=== PATIENT | female | born 1995 | race Caucasian/White ===

== ENCOUNTER → 2017-03-22 | Outpatient (CLI) | payer OTHER ==
--- NOTE | 2017-03-23 00:48 | REP ---
Clinical: Pain. Technique: AP and frog lateral views of the right hip. Findings: Osseous structures, joint space, and surrounding soft tissues are normal. No evidence for acute or healed injury. No significant degenerative changes. Impression: Normal right hip radiographs. Signed by Brian Yost MD 03/23/2017 12:40 A
== END ==
LOC: M RAD 17:23
PROVIDERS: ATTEND Nurse Practitioner Family
DX: M25.551 Pain in right hip (principal)

== ENCOUNTER 2019-01-08 08:43 | Emergency (ER) | payer OTHER ==
[~2019-01-08] VITALS: Ht 165.1 cm; Wt 59.1 kg
[2019-01-08] MEDS ORDERED: IPRATROPIUM 0.5MG/ALBUTEROL 2.5MG INH SOL UD 3ML (DUONEB)(J7620) NEB ONE (09:15)
[2019-01-08 09:55] LABS: INFLUENZA A AMPLIFICATION NEGATIVE (NEGATIVE); INFLUENZA B AMPLIFICATION NEGATIVE (NEGATIVE)
[2019-01-08 10:02] VITALS: BP 125/70
[2019-01-08] MEDS ORDERED: PROAAER10 INH (10:06)
--- NOTE | 2019-01-08 13:24 | REP ---
CHEST, TWO VIEWS: There is no evidence of acute infiltrate. No pleural effusion is seen. The heart is normal in size. The mediastinal silhouette is unremarkable. The visualized osseous structures are intact. IMPRESSION: No acute pulmonary disease. Electronically Signed by Aries Puentes MD 01/08/2019 11:38 P
== END 2019-01-08 10:15 | disposition home or self-care (01) ==
LOC: M ED 08:43
DX: R05 Cough (principal); R06.2 Wheezing; R68.83 Chills (without fever); M79.10 Myalgia, unspecified site; B97.4 Respiratory syncytial virus as the cause of diseases classified elsewhere; F17.200 Nicotine dependence, unspecified, uncomplicated; Z88.0 Allergy status to penicillin

== ENCOUNTER 2019-05-18 18:35 | Emergency (ER) | payer OTHER ==
[~2019-05-18] VITALS: Ht 165.1 cm; Wt 58.9 kg
[~2019-05-18 18:35] MED LIST: PROAAER10 INH
[2019-05-18 18:38] VITALS: BP 117/71
== END 2019-05-18 18:48 | disposition left against medical advice (07) ==
LOC: M ED 18:35
DX: Z53.29 Procedure and treatment not carried out because of patient's decision for other reasons (principal)

== ENCOUNTER → 2020-08-25 | Outpatient (REF) | payer MEDICAID, OTHER | LOC: M LAB REF 19:17 | PROVIDERS: ATTEND Nurse Practitioner Family | DX: Z12.4 Encounter for screening for malignant neoplasm of cervix (principal); N76.0 Acute vaginitis ==

== ENCOUNTER → 2021-03-23 | Outpatient (REF) | payer OTHER ==
[2021-03-23 17:27] LABS: HEMATOCRIT 37.8 % (36.0-47.0); HEMOGLOBIN 12.5 g/dl (12.0-15.5); MEAN CORPUSCULAR HEMOGLOBIN 30.9 pg (27.0-33.0); MEAN CORPUSCULAR HGB CONC 33.1 g/dl (32.0-36.5); MEAN CORPUSCULAR VOLUME 93.6 fl (80.0-96.0); PLATELET COUNT, AUTOMATED 298 10^3/uL (150-450); RED BLOOD COUNT 4.04 10^6/uL (4.00-5.40); WHITE BLOOD COUNT 10.6 10^3/uL (4.0-10.0)
[2021-03-23 21:53] LABS: HCG, SERUM QUANTITATIVE 10070 MIU/ML
[2021-03-24 10:41] LABS: HEPATITIS C VIRUS ABY INDEX < 0.0 INDEX (<0.8); HIV 1&2 SCREEN CENTAUR NEGATIVE (NEGATIVE)
== END ==
LOC: M LAB REF 16:11
PROVIDERS: ATTEND Advanced Practice Midwife
DX: Z32.01 Encounter for pregnancy test, result positive (principal)

== ENCOUNTER 2021-07-14 14:43 | Outpatient (CLI) | payer OTHER ==
[~2021-07-14] VITALS: Ht 165.1 cm; Wt 81.6 kg
[2021-07-14 15:01] VITALS: BP 130/62
--- NOTE | 2021-07-14 16:19 | IPNPDOC ---
Text Note Date of Service The patient was seen on 07/14/21. NOTE Progress note S: 23 yo G1 at 21 weeks (SANCHEZ=[birth year]) presents to triage with sharp, intermittent lower pelvic pain for 1 day. Pain is worse with turning or bending. She has some low back pain. Pt of Dr. Glass. O: AVSS NAD Abd: NT, soft, gravid SVE: cx L/C/P FHT: + toco: none A/P 23 yo G1 at 21 weeks gestation with ligament pain discharge home fu Dr. Glass as scheduled GLORIA COOK MD Jul 14, 2021 16:19
== END 2021-07-14 16:25 | disposition home or self-care (01) ==
LOC: M LDO 14:43
PROVIDERS: ATTEND Specialist
DX: O26.892 Other specified pregnancy related conditions, second trimester (principal); R10.2 Pelvic and perineal pain; Z3A.21 21 weeks gestation of pregnancy

== ENCOUNTER → 2024-10-02 | Outpatient (CLI) | payer OTHER ==
[~2024-10-02] MED LIST changes: +ACET-683 PO; +ACET-897 PO; +CLEO300C2 PO; +COLA100C5 PO; +IBUP-1022 PO; +LEVO1TAB39 PO; +M-NA1TAB; +METR-265 PO; +NITR100C3 PO; +OXYC-517 PO; +OXYC1TAB23 PO; +PERCOCET PO; +SKYL13.5 IU
== END ==
LOC: M RAD 14:22 → MERGE 15:15
PROVIDERS: ATTEND Obstetrics & Gynecology
DX: Z34.82 Encounter for supervision of other normal pregnancy, second trimester (principal); Z3A.19 19 weeks gestation of pregnancy

== ENCOUNTER 2024-10-19 09:33 | Outpatient (CLI) | payer OTHER ==
[~2024-10-19] VITALS: Ht 162.6 cm; Wt 88.1 kg
[2024-10-19 09:59] VITALS: BP 109/54
== END 2024-10-19 13:20 | disposition home or self-care (01) ==
LOC: M LDO 09:33
PROVIDERS: ATTEND Advanced Practice Midwife
DX: O26.892 Other specified pregnancy related conditions, second trimester (principal); O44.42 Low lying placenta NOS or without hemorrhage, second trimester; O34.211 Maternal care for low transverse scar from previous cesarean delivery; M54.40 Lumbago with sciatica, unspecified side; Z3A.23 23 weeks gestation of pregnancy
CPT/HCPCS: 59025; 81001; G0463

== ENCOUNTER → 2024-11-07 | Outpatient (CLI) | payer OTHER ==
[2024-11-07 07:30] LABS: HEMATOCRIT 35.2 % (36.0-47.0); HEMOGLOBIN 11.4 g/dl (12.0-15.5); MEAN CORPUSCULAR HGB CONC 32.4 g/dl (32.0-36.5); MEAN CORPUSCULAR VOLUME 95.7 fl (80.0-96.0); PLATELET COUNT, AUTOMATED 276 10^3/uL (150-450); RED BLOOD COUNT 3.68 10^6/uL (4.00-5.40)
[2024-11-08 08:58] LABS: WHITE BLOOD COUNT 12.7 10^3/uL (4.0-10.0)
== END ==
LOC: M RAD 06:50
PROVIDERS: ATTEND Obstetrics & Gynecology
DX: Z34.82 Encounter for supervision of other normal pregnancy, second trimester (principal)

== ENCOUNTER → 2024-11-08 | Outpatient (REF) | payer OTHER | LOC: M LAB REF 13:36 | PROVIDERS: ATTEND Advanced Practice Midwife | DX: R30.0 Dysuria (principal) ==

== ENCOUNTER → 2024-11-22 | Outpatient (REF) | payer OTHER | LOC: M LAB REF 12:10 | PROVIDERS: ATTEND Obstetrics & Gynecology | DX: R30.0 Dysuria (principal) ==

== ENCOUNTER 2024-12-19 07:32 | Outpatient (CLI) | payer OTHER ==
[~2024-12-19] VITALS: Ht 162.6 cm; Wt 92.3 kg
[2024-12-19] MEDS ORDERED: HOME MED LIST COMPLETE! XX SCH (08:05)
[2024-12-19 08:07] VITALS: BP 126/62
[2024-12-19 09:02] LABS: APPEARANCE, URINE HAZY (CLEAR); BACTERIA, URINE AUTO 1+ (NEGATIVE); BILIRUBIN, URINE AUTO NEGATIVE (NEGATIVE); BLOOD, URINE BLOOD NEGATIVE (NEGATIVE); COLOR, URINE YELLOW (YELLOW); GLUCOSE, URINE (UA) AUTO NEGATIVE (NEGATIVE); KETONE, URINE AUTO TRACE mg/dL (NEGATIVE); LEUKOCYTE ESTERASE, URINE AUTO NEGATIVE (NEGATIVE); MUCUS, URINE SMALL (NEGATIVE); NITRITE, URINE AUTO NEGATIVE (NEGATIVE); PROTEIN, URINE AUTO NEGATIVE (NEGATIVE); RBC, URINE AUTO 1 /HPF (0-3); SPECIFIC GRAVITY URINE AUTO 1.017 (1.002-1.035); SQUAMOUS EPITHELIAL CELL UR AU 4 /HPF (0-6); UROBILINOGEN, URINE AUTO 0.2 mg/dL (0.0-2.0); WBC, URINE AUTO 1 /HPF (0-3)
== END 2024-12-19 10:00 | disposition home or self-care (01) ==
LOC: M LDO 07:32
PROVIDERS: ATTEND Advanced Practice Midwife
DX: O26.893 Other specified pregnancy related conditions, third trimester (principal); O34.219 Maternal care for unspecified type scar from previous cesarean delivery; R25.2 Cramp and spasm; M54.50 Low back pain, unspecified; Z3A.32 32 weeks gestation of pregnancy
CPT/HCPCS: 59025; 81001; 87086; G0463

== ENCOUNTER → 2025-01-08 | Outpatient (REF) | payer OTHER | LOC: M LAB REF 16:10 | PROVIDERS: ATTEND Obstetrics & Gynecology | DX: Z34.83 Encounter for supervision of other normal pregnancy, third trimester (principal) ==

== ENCOUNTER 2025-02-05 05:23 | Inpatient (IN) | payer OTHER ==
[2025-02-05] VITALS (7 sets, daily range): BP systolic 100–113; BP diastolic 54–74; TEMP 96.7; O2SAT 96–100
[~2025-02-05] VITALS: Ht 162.6 cm; Wt 94.1 kg
[2025-02-05] MEDS: LACTATED RINGER'S 1000 ML IV STA (05:49)
[2025-02-05] MEDS: ceFAZolin SODIUM 2 GM in DEXTROSE 5% (D5W) ADV/MINI-BAG 50 ML IV ONE (05:50)
[2025-02-05] MEDS ORDERED: LR 1,000 ML IV SCH (05:50)
[2025-02-05 06:41] LABS: HEMOGLOBIN 10.8 g/dl (12.0-15.5); MEAN CORPUSCULAR HEMOGLOBIN 31.5 pg (27.0-33.0); MEAN CORPUSCULAR HGB CONC 33.8 g/dl (32.0-36.5); MEAN CORPUSCULAR VOLUME 93.3 fl (80.0-96.0); PLATELET COUNT, AUTOMATED 248 10^3/uL (150-450); RED BLOOD COUNT 3.43 10^6/uL (4.00-5.40); WHITE BLOOD COUNT 12.8 10^3/uL (4.0-10.0)
[2025-02-05] MEDS: BICITRA 30ML SOLN UDC PO ONE (07:16)
[2025-02-05 07:36] LABS: HEPATITIS C VIRUS ABY INDEX 0.04 INDEX (<0.8)
[2025-02-05] MEDS ORDERED: MORPHINE PRES-FREE INJ 10 MG/10 ML VIAL As Ordered ONE (07:57)
[2025-02-05] MEDS ORDERED: OXYTOCIN INJ 10UNITS/ML 1ML VIAL As Ordered ONE (07:57)
[2025-02-05] MEDS ORDERED: fentaNYL 100 MCG/2 ML INJECTION As Ordered ONE (07:57)
[2025-02-05] MEDS ORDERED: ONDANSETRON 4MG 2ML VIAL As Ordered ONE (07:59)
[2025-02-05] MEDS ORDERED: GLYCOPYRROLATE INJ 0.2 MG/ML 2 ML VIAL As Ordered ONE (08:02)
[2025-02-05] MEDS ORDERED: PHENYLephrine 500MCG 5ML (100MCG/ML) SYRINGE As Ordered ONE (08:15)
[2025-02-05] MEDS ORDERED: KETOROLAC 60MG 2ML VIAL As Ordered ONE (08:20)
[2025-02-05 08:25] LABS: CORD GAS ABE A -5.4; CORD GAS HCO3 A 23.3 MMOL/L; CORD GAS O2 SAT A 48.9 %; CORD GAS PCO2 A 57.4 mmHg; CORD GAS PH A 7.226 UNITS; CORD GAS PO2 A 21.7 mmHg; CORD GAS SBC A 18.9 MMOL/L
[2025-02-05 08:27] LABS: CORD GAS ABE V -2.8; CORD GAS HCO3 V 22.2 MMOL/L; CORD GAS O2 SAT V 76.3 %; CORD GAS PCO2 V 39.6 mmHg; CORD GAS PH V 7.367 UNITS; CORD GAS PO2 V 28.9 mmHg; CORD GAS SBC V 21.6 MMOL/L; CORD GAS TCO2 V 23.4 MMOL/L
[2025-02-05] MEDS ORDERED: SIMETHICONE 80MG CHEW TAB PO PRN (08:45)
[2025-02-05] MEDS ORDERED: RHOGAM 300MCG (1500IU) INJ IM SCH (08:45)
[2025-02-05] MEDS ORDERED: DOCUSATE SODIUM 100MG CAPSULE PO PRN (08:45)
[2025-02-05] MEDS: OXYTOCIN DRIP 30 UNITS in IV 1 EA IV SCH (08:45)
[2025-02-05] MEDS: PRENATAL VITAMINS CHEWABLE TABLET PO SCH (09:00)
[2025-02-05] MEDS: DOCUSATE SODIUM 100MG CAPSULE PO SCH (09:00)
[2025-02-05] MEDS ORDERED: **NOTE PATIENT COMMENT** MISC XX SCH (09:35)
[2025-02-05] MEDS ORDERED: NALOXONE INJ 0.4MG/1ML VIAL IV PRN ×2 (09:35)
[2025-02-05] MEDS ORDERED: diphenhydrAMINE 50MG/ML VIAL IV PRN (09:35)
[2025-02-05] MEDS: fentaNYL 100 MCG/2 ML INJECTION IV PRN (09:46)
[2025-02-05] MEDS: ONDANSETRON 4MG 2ML VIAL IV PRN (09:58)
[2025-02-05 12:16] LABS: HIV 1&2 SCREEN NEGATIVE (NEGATIVE)
[2025-02-05] MEDS: METOCLOPRAMIDE INJ 10MG/2ML VIAL IV PRN (13:40)
[2025-02-05] MEDS: SLF 3 ML SYR IV SCH (13:49)
[2025-02-05] MEDS: KETOROLAC 30 MG/ML 1ML VIAL IV SCH (13:58)
[2025-02-05] MEDS ORDERED: ONDANSETRON 4MG 2ML VIAL IV ONE (14:05)
[2025-02-05] MEDS: LR 500 ML IV ONE (14:09)
[2025-02-05] MEDS ORDERED: ONDANSETRON 4MG 2ML VIAL IV PRN (14:15)
[2025-02-06 02:00] VITALS: BP 119/58; O2SAT 98
[2025-02-06 06:00] VITALS: BP 121/58; O2SAT 97
[2025-02-06 06:36] LABS: HEMATOCRIT 25.6 % (36.0-47.0); MEAN CORPUSCULAR HEMOGLOBIN 30.8 pg (27.0-33.0); MEAN CORPUSCULAR HGB CONC 32.8 g/dl (32.0-36.5); MEAN CORPUSCULAR VOLUME 93.8 fl (80.0-96.0); PLATELET COUNT, AUTOMATED 189 10^3/uL (150-450); RED BLOOD COUNT 2.73 10^6/uL (4.00-5.40)
[2025-02-06 06:40] LABS: HEMOGLOBIN 8.4 g/dl (12.0-15.5)
[2025-02-06] MEDS: IBUPROFEN 800 MG TAB PO SCH (08:08)
[2025-02-06 10:00] VITALS: BP 110/56; O2SAT 98
[2025-02-06] MEDS ORDERED: IBUPROFEN 800 MG TAB PO SCH (10:00)
[2025-02-06] MEDS: ACETAMINOPHEN 500 MG TAB PO ONE (13:23)
[2025-02-06 14:00] VITALS: BP 126/58; O2SAT 97
[2025-02-06] MEDS: oxyCODONE 5MG TAB PO ONE (14:39)
[2025-02-06 18:00] VITALS: BP 124/65; O2SAT 99
[2025-02-06] MEDS: PERCOCET 5MG/325MG TAB PO PRN (19:36)
[2025-02-06 22:00] VITALS: BP 136/63; O2SAT 97
[2025-02-07 02:00] VITALS: BP 121/64; O2SAT 98
[2025-02-07 06:00] VITALS: BP 122/59; O2SAT 98
[2025-02-07] MEDS: MEASLES,MUMPS,RUBELLA VACCINE INJ (MMR-II) SC.IMMUN ONE (09:00)
[2025-02-07 10:00] VITALS: BP 131/74; O2SAT 98
[2025-02-07] MEDS ORDERED: IBUP80TA PO (13:56)
[2025-02-07] MEDS ORDERED: COLA100C5 PO (13:56)
== END 2025-02-07 14:31 | disposition home or self-care (01) | DRG 540 ==
LOC: M LDI 05:23 → M OBS 10:13
PROVIDERS: ADMIT Obstetrics & Gynecology; ATTEND Obstetrics & Gynecology
PROC: 10D00Z1 Extraction of Products of Conception, Low, Open Approach (ICD-10-PCS; principal; 2025-02-05 07:30)
DX: O34.211 Maternal care for low transverse scar from previous cesarean delivery (principal); Z88.0 Allergy status to penicillin; Z37.0 Single live birth; Z3A.39 39 weeks gestation of pregnancy; Z91.018 Allergy to other foods; Z91.040 Latex allergy status; Z87.891 Personal history of nicotine dependence

== ENCOUNTER 2025-02-09 20:29 | Observation (INO) | payer OTHER ==
[~2025-02-09] VITALS: Ht 162.6 cm; Wt 92.5 kg
[~2025-02-09 20:29] MED LIST changes: +IBUP80TA PO
[2025-02-09] MEDS: ONDANSETRON 4MG 2ML VIAL IV ONE (21:55)
[2025-02-09] MEDS: ACETAMINOPHEN *IV* 1,000 MG in IV 1 EA IV ONE (21:59)
[2025-02-09 22:02] LABS: BASO % 0.4 % (0.0-1.0); EOS # 0.3 10^3/uL (0.0-0.5); EOS % 2.7 % (0.0-3.0); HEMATOCRIT 30.3 % (36.0-47.0); HEMOGLOBIN 9.9 g/dl (12.0-15.5); LYMPH # 2.3 10^3/uL (1.5-5.0); LYMPH % 24.5 % (24.0-44.0); MEAN CORPUSCULAR HEMOGLOBIN 30.8 pg (27.0-33.0); MEAN CORPUSCULAR HGB CONC 32.7 g/dl (32.0-36.5); MEAN CORPUSCULAR VOLUME 94.4 fl (80.0-96.0); MONO # 0.7 10^3/uL (0.0-0.8); MONO % 7.2 % (2.0-8.0); NEUTROPHILS % 64.9 % (36.0-66.0); PLATELET COUNT, AUTOMATED 249 10^3/uL (150-450); RED BLOOD COUNT 3.21 10^6/uL (4.00-5.40); WHITE BLOOD COUNT 9.2 10^3/uL (4.0-10.0)
[2025-02-09 22:17] LABS: INR 0.99; PARTIAL THROMBOPLASTIN TIME 26.6 SECONDS (24.8-34.2); PROTHROMBIN TIME 13.4 SECONDS (12.5-14.5)
[2025-02-09 22:26] LABS: BLOOD UREA NITROGEN 16 MG/DL (9-23); CALCIUM LEVEL 8.4 MG/DL (8.5-10.1); CARBON DIOXIDE LEVEL 24 MMOL/L (20-31); CHLORIDE LEVEL 109 MMOL/L (98-107); CREATININE FOR GFR 0.89 MG/DL (0.55-1.30); GLOMERULAR FILTRATION RATE > 60.0 (>60); GLUCOSE, FASTING 80 MG/DL (60-100); POTASSIUM SERUM 4.2 MMOL/L (3.5-5.1); SODIUM LEVEL 142 MMOL/L (136-145)
[2025-02-09] MEDS ORDERED: ISOVUE-370 76% 100ML VIAL As Ordered ONE (22:32)
[2025-02-09 22:36] VITALS: BP 162/77
[2025-02-09] MEDS: hydrALAZINE 20MG/ML 1ML VIAL IV STA (22:36)
[2025-02-09 22:46] LABS: ALBUMIN 2.6 G/DL (3.2-5.2); ALKALINE PHOSPHATASE 128 U/L (35-104); ALT/SGPT 40 U/L (7.0-40); AST/SGOT 35 U/L (<34); BILIRUBIN,DIRECT 0.1 MG/DL (<0.4); BILIRUBIN,TOTAL 0.5 MG/DL (0.3-1.2); MAGNESIUM LEVEL 1.7 MG/DL (1.8-2.4); PHOSPHORUS LEVEL 4.3 MG/DL (2.5-4.9); TOTAL PROTEIN 5.8 G/DL (5.7-8.2)
[2025-02-09] MEDS: MAG SULF 1GM/100ML (MAG RUN) 1 GM in IV 1 EA IV SCH (22:46)
[2025-02-09 22:55] LABS: URIC ACID 6.4 MG/DL (3.1-7.8)
[2025-02-09 22:56] LABS: CK-MB VALUE MASS 1.2 NG/ML (<3.6)
[2025-02-09 22:58] LABS: CPK CREATINE PHOSPHOKINASE 293 U/L (34-145)
[2025-02-09] MEDS ORDERED: DOCU100C16 PO (23:55)
[2025-02-09] MEDS ORDERED: IBUP-1764 PO (23:55)
[2025-02-09] MEDS ORDERED: HOME MED LIST COMPLETE! XX SCH (23:55)
[2025-02-10] VITALS (15 sets, daily range): BP systolic 110–176; BP diastolic 59–84; TEMP 96.4–98.7; O2SAT 96–100
[2025-02-10] MEDS ORDERED: FIORICET TAB PO SCH
[2025-02-10 00:12] LABS: APPEARANCE, URINE HAZY (CLEAR); BACTERIA, URINE AUTO NEGATIVE (NEGATIVE); BILIRUBIN, URINE AUTO NEGATIVE (NEGATIVE); BLOOD, URINE BLOOD 3+ (NEGATIVE); COLOR, URINE YELLOW (YELLOW); GLUCOSE, URINE (UA) AUTO NEGATIVE (NEGATIVE); KETONE, URINE AUTO NEGATIVE (NEGATIVE); LEUKOCYTE ESTERASE, URINE AUTO TRACE (NEGATIVE); MUCUS, URINE SMALL (NEGATIVE); NITRITE, URINE AUTO NEGATIVE (NEGATIVE); PROTEIN, URINE AUTO 2+ mg/dL (NEGATIVE); RBC, URINE AUTO TNTC /HPF (0-3); SQUAMOUS EPITHELIAL CELL UR AU 7 /HPF (0-6); UROBILINOGEN, URINE AUTO 0.2 mg/dL (0.0-2.0); WBC, URINE AUTO 5 /HPF (0-3)
[2025-02-10] MEDS ORDERED: IBUPROFEN 600MG TAB PO PRN ×2 (00:15→09:00)
[2025-02-10] MEDS: MAG Sulf (OBGYN) 20GM/500ML 20,000 MG in IV 1 EA IV SCH (01:16)
[2025-02-10] MEDS: ACETAMINOPHEN 325 MG TAB PO PRN (01:25)
[2025-02-10] MEDS: KETOROLAC 30 MG/ML 1ML VIAL IV ONE (02:57)
[2025-02-10 05:11] LABS: HEMATOCRIT 29.3 % (36.0-47.0); HEMOGLOBIN 9.6 g/dl (12.0-15.5); MEAN CORPUSCULAR HEMOGLOBIN 30.9 pg (27.0-33.0); MEAN CORPUSCULAR HGB CONC 32.8 g/dl (32.0-36.5); MEAN CORPUSCULAR VOLUME 94.2 fl (80.0-96.0); PLATELET COUNT, AUTOMATED 225 10^3/uL (150-450); RED BLOOD COUNT 3.11 10^6/uL (4.00-5.40); WHITE BLOOD COUNT 8.4 10^3/uL (4.0-10.0)
[2025-02-10 05:41] LABS: ALBUMIN 2.5 G/DL (3.2-5.2); ALKALINE PHOSPHATASE 120 U/L (35-104); ALT/SGPT 37 U/L (7.0-40); AST/SGOT 28 U/L (<34); BILIRUBIN,TOTAL 0.5 MG/DL (0.3-1.2); BLOOD UREA NITROGEN 14 MG/DL (9-23); CARBON DIOXIDE LEVEL 23 MMOL/L (20-31); CHLORIDE LEVEL 108 MMOL/L (98-107); CREATININE FOR GFR 0.75 MG/DL (0.55-1.30); GLOMERULAR FILTRATION RATE > 60.0 (>60); GLUCOSE, FASTING 86 MG/DL (60-100); POTASSIUM SERUM 3.8 MMOL/L (3.5-5.1); SODIUM LEVEL 141 MMOL/L (136-145); TOTAL PROTEIN 5.6 G/DL (5.7-8.2)
[2025-02-10] MEDS: DOCUSATE SODIUM 100MG CAPSULE PO SCH (09:00)
[2025-02-10] MEDS: NIFEdipine 10 MG CAP PO SCH (14:15)
[2025-02-10 14:59] LABS: TOTAL PROTEIN,RANDOM URINE 96.2 MG/DL (0.0-14.0)
[2025-02-10 15:04] LABS: CREATININE,RANDOM URINE 100.2 MG/DL
[2025-02-10] MEDS: FIORICET TAB PO ONE (15:21)
[2025-02-10] MEDS ORDERED: ESGI1TAB PO (17:12)
[2025-02-11] MEDS ORDERED: BUTA-198 PO (15:45)
== END 2025-02-10 18:08 | disposition home or self-care (01) ==
LOC: M ED 20:29 → M ED INP 20:30 → M ICU 02-10 01:04 → M OBS 02-10 12:51
PROVIDERS: ADMIT Specialist; ATTEND Specialist
DX: O14.95 Unspecified pre-eclampsia, complicating the puerperium (principal); Z88.0 Allergy status to penicillin; Z91.040 Latex allergy status; Z91.018 Allergy to other foods

== ENCOUNTER 2025-02-11 11:48 | Inpatient (IN) | payer OTHER ==
[~2025-02-11] VITALS: Ht 162.6 cm; Wt 85.8 kg
[~2025-02-11 11:48] MED LIST changes: +DOCU100C16 PO; +ESGI1TAB PO; +IBUP-1764 PO
[2025-02-11 12:39] LABS: BASO # 0.1 10^3/uL (0.0-0.2); BASO % 0.8 % (0.0-1.0); EOS # 0.2 10^3/uL (0.0-0.5); EOS % 2.4 % (0.0-3.0); HEMATOCRIT 32.3 % (36.0-47.0); HEMOGLOBIN 10.6 g/dl (12.0-15.5); LYMPH # 2.1 10^3/uL (1.5-5.0); LYMPH % 27.9 % (24.0-44.0); MEAN CORPUSCULAR HEMOGLOBIN 31.1 pg (27.0-33.0); MEAN CORPUSCULAR HGB CONC 32.8 g/dl (32.0-36.5); MEAN CORPUSCULAR VOLUME 94.7 fl (80.0-96.0); MONO # 0.4 10^3/uL (0.0-0.8); MONO % 5.3 % (2.0-8.0); NEUTROPHILS # 4.6 10^3/uL (1.5-8.5); NEUTROPHILS % 63.2 % (36.0-66.0); PLATELET COUNT, AUTOMATED 268 10^3/uL (150-450); RED BLOOD COUNT 3.41 10^6/uL (4.00-5.40); WHITE BLOOD COUNT 7.4 10^3/uL (4.0-10.0)
[2025-02-11 12:51] LABS: INR 0.99; PARTIAL THROMBOPLASTIN TIME 25.8 SECONDS (24.8-34.2); PROTHROMBIN TIME 13.4 SECONDS (12.5-14.5)
[2025-02-11 13:27] LABS: CK-MB VALUE MASS 1.3 NG/ML (<3.6)
[2025-02-11 13:32] LABS: ALBUMIN 2.9 G/DL (3.2-5.2); ALKALINE PHOSPHATASE 124 U/L (35-104); ALT/SGPT 39 U/L (7.0-40); AST/SGOT 28 U/L (<34); BILIRUBIN,DIRECT < 0.1 MG/DL (<0.4); BILIRUBIN,TOTAL 0.4 MG/DL (0.3-1.2); BLOOD UREA NITROGEN 10 MG/DL (9-23); CALCIUM LEVEL 8.4 MG/DL (8.5-10.1); CARBON DIOXIDE LEVEL 23 MMOL/L (20-31); CHLORIDE LEVEL 109 MMOL/L (98-107); CPK CREATINE PHOSPHOKINASE 227 U/L (34-145); CREATININE FOR GFR 0.79 MG/DL (0.55-1.30); GLOMERULAR FILTRATION RATE > 60.0 (>60); GLUCOSE, FASTING 77 MG/DL (60-100); MB/CK RELATIVE INDEX 0.57 (< OR =4); POTASSIUM SERUM 4.5 MMOL/L (3.5-5.1); SODIUM LEVEL 143 MMOL/L (136-145); TOTAL PROTEIN 6.4 G/DL (5.7-8.2)
[2025-02-11] MEDS: hydrALAZINE 20MG/ML 1ML VIAL IV ONE (14:15)
[2025-02-11 14:27] LABS: CK-MB VALUE MASS 1.3 NG/ML (<3.6)
[2025-02-11 14:28] LABS: MB/CK RELATIVE INDEX 0.58 (< OR =4)
[2025-02-11] MEDS: hydrALAZINE 20MG/ML 1ML VIAL IV STA (15:12)
[2025-02-11] MEDS ORDERED: HOME MED LIST COMPLETE! XX SCH (15:45)
[2025-02-11] MEDS ORDERED: BUTA-198 PO (15:45)
[2025-02-11] MEDS ORDERED: hydrALAZINE 20MG/ML 1ML VIAL IV PRN (15:50)
[2025-02-11 15:51] LABS: TOTAL PROTEIN,RANDOM URINE 28.1 MG/DL (0.0-14.0)
[2025-02-11 15:56] LABS: CREATININE,RANDOM URINE 29.4 MG/DL
[2025-02-11] MEDS: **hydrALAZINE HCL** 25 MG TAB PO ONE (17:32)
[2025-02-11] MEDS: METOCLOPRAMIDE INJ 10MG/2ML VIAL IV PRN (17:32)
[2025-02-11] MEDS: amLODIPine 5 MG TAB PO ONE (17:32)
[2025-02-11] MEDS: ACETAMINOPHEN 325 MG TAB PO PRN (19:00)
[2025-02-11] MEDS: **hydrALAZINE HCL** 25 MG TAB PO SCH (20:50)
[2025-02-11] MEDS: amLODIPine 5 MG TAB PO SCH (20:51)
[2025-02-11] MEDS ORDERED: amLODIPine 5 MG TAB PO SCH (21:00)
[2025-02-12] VITALS (8 sets, daily range): BP systolic 124–143; BP diastolic 66–88; TEMP 97.3–99.4; O2SAT 96–98
[2025-02-12 06:12] LABS: BASO # 0.1 10^3/uL (0.0-0.2); BASO % 0.6 % (0.0-1.0); EOS # 0.3 10^3/uL (0.0-0.5); EOS % 3.2 % (0.0-3.0); HEMOGLOBIN 11.2 g/dl (12.0-15.5); LYMPH # 3.3 10^3/uL (1.5-5.0); LYMPH % 37.3 % (24.0-44.0); MEAN CORPUSCULAR HGB CONC 32.9 g/dl (32.0-36.5); MEAN CORPUSCULAR VOLUME 94.2 fl (80.0-96.0); MONO # 0.9 10^3/uL (0.0-0.8); MONO % 9.6 % (2.0-8.0); NEUTROPHILS # 4.3 10^3/uL (1.5-8.5); NEUTROPHILS % 48.7 % (36.0-66.0); PLATELET COUNT, AUTOMATED 278 10^3/uL (150-450); RED BLOOD COUNT 3.61 10^6/uL (4.00-5.40); WHITE BLOOD COUNT 8.8 10^3/uL (4.0-10.0)
[2025-02-12 06:43] LABS: ALBUMIN 2.7 G/DL (3.2-5.2); ALKALINE PHOSPHATASE 118 U/L (35-104); ALT/SGPT 31 U/L (7.0-40); AST/SGOT 15 U/L (<34); BILIRUBIN,TOTAL 0.5 MG/DL (0.3-1.2); BLOOD UREA NITROGEN 11 MG/DL (9-23); CALCIUM LEVEL 8.5 MG/DL (8.5-10.1); CARBON DIOXIDE LEVEL 23 MMOL/L (20-31); CHLORIDE LEVEL 111 MMOL/L (98-107); CREATININE FOR GFR 0.78 MG/DL (0.55-1.30); GLOMERULAR FILTRATION RATE > 60.0 (>60); GLUCOSE, FASTING 75 MG/DL (60-100); SODIUM LEVEL 145 MMOL/L (136-145)
[2025-02-12] MEDS: amLODIPine 5 MG TAB PO SCH (12:47)
[2025-02-12 16:12] LABS: MAGNESIUM LEVEL 1.8 MG/DL (1.8-2.4)
[2025-02-12] MEDS ORDERED: PROHANCE 279.3MG/ML 15ML VIAL As Ordered ONE (20:47)
[2025-02-12] MEDS ORDERED: PROHANCE 279.3MG/ML 5ML VIAL As Ordered ONE (20:47)
[2025-02-13] MEDS: MIRALAX *UNIT DOSE* 17GM PACKET PO SCH (00:05)
[2025-02-13 04:05] VITALS: BP 119/71; TEMP 98; O2SAT 95
[2025-02-13 07:55] VITALS: BP 121/68; TEMP 97.7; O2SAT 96
[2025-02-13] MEDS ORDERED: AMLO1TAB24 PO (08:17)
[2025-02-13] MEDS ORDERED: HYDR25TA87 PO (08:17)
[2025-02-13] MEDS: METAMUCIL (PSYLLIUM) PACKET PO SCH (09:00)
[2025-02-13 09:32] VITALS: BP 122/82
== END 2025-02-13 10:00 | disposition home or self-care (01) | DRG 561 ==
LOC: M ED 11:48 → M ED INP 15:50 → M PCU 02-12 00:52
PROVIDERS: ADMIT Internal Medicine Nephrology; ATTEND Student in an Organized Health Care Education/Training Program
DX: O14.95 Unspecified pre-eclampsia, complicating the puerperium (principal); I16.0 Hypertensive urgency; G43.909 Migraine, unspecified, not intractable, without status migrainosus; Z88.0 Allergy status to penicillin; Z91.018 Allergy to other foods; Z91.040 Latex allergy status; Z79.899 Other long term (current) drug therapy; O99.355 Diseases of the nervous system complicating the puerperium

== ENCOUNTER → 2025-03-14 | Outpatient (REF) | payer OTHER ==
[~2025-03-14] MED LIST changes: +AMLO1TAB24 PO; +BUTA-198 PO; +HYDR25TA87 PO
[2025-03-14 18:41] LABS: THYROID STIMULATING HORMONE 1.942 uIU/ML (0.55-4.78)
[2025-03-14 18:45] LABS: ALBUMIN 3.6 G/DL (3.2-5.2); ALKALINE PHOSPHATASE 129 U/L (35-104); ALT/SGPT 19 U/L (7.0-40); AST/SGOT 13 U/L (<34); BILIRUBIN,TOTAL 0.5 MG/DL (0.3-1.2); BLOOD UREA NITROGEN 13 MG/DL (9-23); CALCIUM LEVEL 8.9 MG/DL (8.5-10.1); CARBON DIOXIDE LEVEL 28 MMOL/L (20-31); CHLORIDE LEVEL 104 MMOL/L (98-107); CHOLESTEROL LEVEL 175 MG/DL (<200); CREATININE FOR GFR 0.71 MG/DL (0.55-1.30); GLOMERULAR FILTRATION RATE > 90.0 (>60); GLUCOSE, FASTING 97 MG/DL (60-100); HDL CHOLESTEROL 32.4 MG/DL (>40); LDL CHOLESTEROL 87.8 MG/DL (<100); NON-HDL-C 142.6 MG/DL; POTASSIUM SERUM 4.6 MMOL/L (3.5-5.1); SODIUM LEVEL 140 MMOL/L (136-145); TOTAL PROTEIN 7.2 G/DL (5.7-8.2); TRIGLYCERIDES LEVEL 274 MG/DL (<150)
[2025-03-14 21:24] LABS: HEMOGLOBIN A1c 5.4 % (4.0-6.0)
== END ==
LOC: M LAB REF 17:44
PROVIDERS: ATTEND Student in an Organized Health Care Education/Training Program
DX: Z68.31 Body mass index [BMI] 31.0-31.9, adult (principal)

== ENCOUNTER → 2025-09-18 | Outpatient (REF) | payer OTHER ==
[~2025-09-18] MED LIST changes: -IBUP-1022 PO; +IBUP600T42 PO
== END ==
LOC: M SFHCWAGY 11:31 → M LAB REF 11:31
PROVIDERS: ATTEND Student in an Organized Health Care Education/Training Program
DX: R10.13 Epigastric pain (principal)

== ENCOUNTER → 2025-10-04 | Outpatient (REF) | payer OTHER ==
[2025-10-04 12:50] LABS: BASO # 0.1 10^3/uL (0.0-0.2); BASO % 0.7 % (0.0-1.0); EOS # 0.3 10^3/uL (0.0-0.5); EOS % 3.1 % (0.0-3.0); LYMPH # 2.7 10^3/uL (1.5-5.0); LYMPH % 31.6 % (24.0-44.0); MONO # 0.6 10^3/uL (0.0-0.8); MONO % 7.5 % (2.0-8.0); NEUTROPHILS # 4.8 10^3/uL (1.5-8.5); NEUTROPHILS % 57.0 % (36.0-66.0); PLATELET COUNT, AUTOMATED 302 10^3/uL (150-450)
[2025-10-04 12:57] LABS: ALT/SGPT 15 U/L (7.0-40); AST/SGOT 12 U/L (<34); CALCIUM LEVEL 9.2 MG/DL (8.5-10.1); CARBON DIOXIDE LEVEL 28 MMOL/L (20-31); CHLORIDE LEVEL 104 MMOL/L (98-107); CREATININE FOR GFR 0.77 MG/DL (0.55-1.30); GLOMERULAR FILTRATION RATE > 90.0 (>60); POTASSIUM SERUM 4.5 MMOL/L (3.5-5.1); SODIUM LEVEL 143 MMOL/L (136-145)
== END ==
LOC: M LAB REF 12:15
PROVIDERS: ATTEND Student in an Organized Health Care Education/Training Program
DX: R10.13 Epigastric pain (principal)

== ENCOUNTER → 2025-11-19 | Outpatient (CLI) | payer OTHER | LOC: M RAD 08:28 | PROVIDERS: ATTEND Student in an Organized Health Care Education/Training Program | DX: R10.13 Epigastric pain (principal) ==